=== PATIENT | female | born 1985 | race Caucasian/White ===

== ENCOUNTER → 2018-08-09 | Outpatient (CLI) | payer BC ==
[~2018-08-09] MED LIST: CYCLOBENZAPRINE5 MG PO; HYDROCHLOROTHIA25 MG PO; IOPAMIDOL 370 MG/ML 200 ML INFUS..BTL INJ ONE; KETOPROFEN75 MG PO; METOPROLOL SUCC25 MG PO; OMEPRAZOLE40 MG PO; PHENTERMINE H37.5 M1 PO; POTASSIUM OTC PO; RANITIDINE PO; SODIUM CHLORIDE 0.9% 50ML 50 ML ONE
[2018-08-09 18:09] LABS: BLOOD UREA NITROGEN 13 mg/dL (7-26); BUN/CREATININE RATIO 16 (6-25); EST GLOMERULAR FILTRATION RATE > 60 ML/MIN (60-)
--- NOTE | 2018-08-09 19:10 | Diagnostic Imaging Report ---
CT CHEST WITH CONTRAST HISTORY: SHORTNESS OF BREATH COMPARISON: None available. TECHNIQUE: CT scan of the chest WITH intravenous contrast, using PE protocol. The chest was scanned utilizing a multidetector helical scanner from the lung apex through the level of the adrenal glands. Thin section reconstructions were obtained with special concentration on the pulmonary arteries. IV CONTRAST: 100 cc of Isovue-370. PROTOCOL: PE RADIATION DOSE: Total DLP: 623.6 mGy*cm Dose modulation, iterative reconstruction, and/or weight based adjustment of the mA/kV was utilized to reduce the radiation dose to as low as reasonably achievable. COMPLICATIONS: None DISCUSSION: Soft tissue attenuation partially limits sensitivity of the exam. Lungs: Low lung volumes result in bibasilar vascular crowding, accentuation of the pulmonary interstitial markings, central pulmonary vasculature, and the cardiac silhouette. Allowing for these limitations, the findings are as follows: No consolidative pneumonia. Vessels: Soft tissue attenuation partially limits evaluation of the pulmonary arteries. No filling defect identified within the pulmonary arteries to the segmental levels. Airways: The major airways are clear. Pleura: No pleural effusion or pneumothorax. Heart and mediastinum: Unremarkable Abdomen: Limited evaluation of the upper abdomen. Diffusely decreased attenuation of the liver. Lymph nodes: No pathologically enlarged lymph node. Bones: No acute bone abnormality. Soft tissues: Unremarkable IMPRESSION: 1. No evidence of a pulmonary embolus. 2. Hepatic steatosis. Signed by: Dr. Giacomo Cheney D.O., M.M.M. on 08/09/2018 7:06 PM
== END ==
LOC: CT 17:11
PROVIDERS: ATTEND Internal Medicine Cardiovascular Disease
DX: R07.9 Chest pain, unspecified (principal); R06.02 Shortness of breath
CPT/HCPCS: 36415; 71260; 81025; 82565; 84520; Q9967